=== PATIENT | female | born 1945 | race Caucasian/White ===

== ENCOUNTER 2017-01-07 05:03 | Inpatient (IN) | payer BC, OTHER ==
[2016-12-11 13:53] VITALS: BMI 44.0
--- NOTE | 2016-12-11 14:32 | PAT Medication Instructions ---
Service Date Dec 11, 2016. Current Home Medication List Aspirin (Aspirin Ec), 81 MG PO QAM Calcium Carbonate-Vitamin D (Oscal 500/200 D-3), 1 TAB PO TID Calcium W/ Vitamins D & K (Calcium + D), 1 TAB PO QAM Glimepiride (Glimepiride), 1 TAB PO QAM Levothyroxine Sodium (Levothyroxine Sodium), 1 TAB PO QAM Rosuvastatin Calcium (Crestor), 20 MG PO HS Vitamin E (Vitamin E), 400 UNITS PO QAM Medication Instructions For Your Scheduled Surgery - Hold the following medications 2 weeks prior to surgery: Vitamin E (Vitamin E), 400 UNITS PO QAM - Hold the following medications the morning of surgery: Glimepiride (Glimepiride), 1 TAB PO QAM Calcium Carbonate-Vitamin D (Oscal 500/200 D-3), 1 TAB PO TID Calcium W/ Vitamins D & K (Calcium + D), 1 TAB PO QAM - Take the following medications the morning of surgery with a sip of water: Levothyroxine Sodium (Levothyroxine Sodium), 1 TAB PO QAM Aspirin (Aspirin Ec), 81 MG PO QAM (unless - Take the following medications as scheduled the night before surgery: Rosuvastatin Calcium (Crestor), 20 MG PO HS Calcium Carbonate-Vitamin D (Oscal 500/200 D-3), 1 TAB PO TID If you have any questions please call us at [phone] (Raisa Laurent PA-C) or [phone] or [phone]
--- NOTE | 2016-12-11 15:00 | DIAGNOSTIC IMAGING REPORT ---
TWO VIEW CHEST CLINICAL HISTORY: Preoperative examination. FINDINGS: PA and lateral chest radiographs are obtained. No prior studies are available for comparison at the time of dictation. The cardiomediastinal silhouette is unremarkable. There is atherosclerotic calcification of the thoracic aorta. Airspace opacities at the right lung base likely represent atelectasis. The lungs and pleural spaces are otherwise clear. Nonspecific interstitial thickening is noted. There is mild elevation of right hemidiaphragm. There is no pneumothorax. The skeletal structures are osteopenic. Degenerative change is noted throughout the thoracic spine. IMPRESSION: No active disease in the chest. Electronically signed by: Mukund Myrick M.D. 12/11/2016 2:58 PM Dictated Date/Time: 12/11/2016 2:57 PM
[2016-12-11 15:19] LABS: BASO % 0.3 %; BASO ABS # 0.02 K/uL (0-0.2); COMPLETE YES; EOS % 2.1 %; HEMATOCRIT 42.1 % (37-47); LYMPH % 22.3 %; LYMPH ABS # 1.29 K/uL (1.2-3.4); MEAN CORPUSCULAR HEMOGLOBIN 28.7 pg (25-34); MEAN PLATELET VOLUME 10.6 fL (7.4-10.4); MONO % 6.7 %; NEUT % 68.6 %; PLATELET COUNT 250 K/uL (130-400); RED BLOOD COUNT 4.84 M/uL (4.2-5.4); WHITE BLOOD COUNT 5.79 K/uL (4.8-10.8)
[2016-12-11 15:39] LABS: BUN/CREATININE RATIO 15.3 (10-20); CALCIUM 8.6 mg/dl (8.5-10.1); CREATININE 1.1 mg/dl (0.60-1.20); POTASSIUM 4.2 mmol/L (3.5-5.1)
[2016-12-11 18:48] LABS: ESTIMATED AVERAGE GLUCOSE 131 mg/dl; HA1C FLAG Normal (Normal)
--- NOTE | 2017-01-01 12:57 | HISTORY & PHYSICAL EXAMINATION ---
DATE OF ADMISSION: 01/07/2017 HISTORY OF PRESENT ILLNESS: This is a 71-year-old female with a multiple-year history of pain in her right hip. The patient rates her pain a 10/10. She has pain with her daily activities. She has limited standing and walking tolerance. Pain is worse with weightbearing. The patient has had anti-inflammatories without relief. She has failed conservative treatment and is scheduled for right hip replacement. PAST MEDICAL HISTORY: Thyroid disease, diabetes. She denies heart disease or DVT. PAST SURGICAL HISTORY: Negative. SOCIAL HISTORY: The patient denies alcohol or tobacco use. She lives in a single raphael home. She lives with her daughter and is retired. FAMILY HISTORY: Negative for DVT. MEDICATIONS: Rosuvastatin 20 mg, aspirin 81 mg, L-thyroxine 75 mcg, Os-Dany 500 mg, vitamin E 400 mg, Viactiv and glimepiride. ALLERGIES: None. REVIEW OF SYSTEMS: See HPI. Ten other systems reviewed, all negative. PHYSICAL EXAMINATION: VITAL SIGNS: Height 5 feet 7 inches, weight 286 pounds. BMI is 45. GENERAL: This is a well-developed, well-nourished female who is alert and oriented x3. Mood and affect are appropriate. HEENT: Normocephalic, atraumatic. Mucous membranes are moist and intact. NECK: Supple without lymphadenopathy. HEART: Regular rate and rhythm without murmurs, rubs or gallops. LUNGS: Clear to auscultation without wheezes or rhonchi. ABDOMEN: Soft and nontender. Bowel sounds are equal and active. EXTREMITIES: No ecchymosis, redness or warmth. Logroll of the hip reproduces pain in the groin. She is neurovascularly intact with +5/5 strength. She has an antalgic gait. X-RAY EXAMINATION: AP and lateral views show severe joint space narrowing and osteophyte formation. IMPRESSION: 1. Degenerative joint disease, right hip. 2. Morbid obesity. PLAN: The patient will be admitted for a right total hip arthroplasty. We will plan lateral position. She will have [facility] for home physical therapy. We will plan on aspirin for DVT prophylaxis.
[~2017-01-07] VITALS: Ht 170.2 cm; Wt 129.3 kg
[2017-01-07] VITALS (13 sets, daily range): BP systolic 125–156; BP diastolic 69–89; PULSE 79–94; TEMP 34.6–36.7; O2SAT 93–100; Ht 170.2 cm; Wt 129.3 kg
[~2017-01-07 05:03] MED LIST: ASPI81TA28 PO; CALC1CHW57 PO; CALC200T PO; GLIM1TAB2 PO; LEVO75TA5 PO; ROSU20TA PO; VITA1TAB4 PO
[2017-01-07] MEDS ORDERED: OXYCODONE HCL 10 MG TABCR (OXYCONTIN) PO SCH (06:00)
[2017-01-07] MEDS ORDERED: LACTATED RINGER'S 1000ML IV SCH ×2 (06:00)
[2017-01-07] MEDS ORDERED: POLYMYXIN B SULFATE 100,000 UNITS in NSS 100ML IR SCH (06:00)
[2017-01-07] MEDS ORDERED: GABAPENTIN 300 MG CAP PO SCH (06:00)
[2017-01-07] MEDS ORDERED: LACTATED RINGER'S 500 ML IV SCH (06:00)
[2017-01-07] MEDS ORDERED: ACETAMINOPHEN 500 MG TAB PO SCH (06:00)
[2017-01-07] MEDS ORDERED: METOCLOPRAMIDE HCL 10 MG TAB PO SCH (06:00)
[2017-01-07] MEDS ORDERED: FAMOTIDINE 20 MG TAB PO SCH (06:00)
[2017-01-07] MEDS ORDERED: CEFAZOLIN 3000 MG/65 ML D5W 65 ML IV SCH (06:00)
[2017-01-07] MEDS ORDERED: ROPIVACAINE 5MG/ML 30 ML 150 MG, BUPIVACAINE/EPINEPHR 0.5% MPF 30 ML, KETOROLAC TROMETH... INFIL SCH ×7 (06:00)
[2017-01-07] MEDS ORDERED: CeleBREX 200 MG CAP PO SCH (06:00)
[2017-01-07] MEDS ORDERED: VANCOMYCIN INJ 400 MG in NSS 100ML IR SCH (06:00)
[2017-01-07] MEDS: TRANEXAMIC ACID INJ 1,000 MG in SODIUM CHLORIDE 0.9% 100ML 100 ML IV SCH ×2 (06:10→06:30)
[2017-01-07] MEDS ORDERED: BUPIVACAINE 0.5 % 5 MG/1 ML PF 10ML VIAL ONE (06:25)
[2017-01-07] MEDS ORDERED: MIDAZOLAM HCL 1 MG/ML 2ML VIAL ONE ×2 (06:44)
[2017-01-07] MEDS ORDERED: FENTANYL CITRATE INJ 50 MCG/1 ML 2 ML VIAL ONE (06:44)
[2017-01-07] MEDS ORDERED: ORTHO JOINT ANESTHETIC ONE (06:50)
[2017-01-07] MEDS ORDERED: POVIDONE-IODINE OP SOLN 30 ML BTL ONE (06:50)
--- NOTE | 2017-01-07 07:05 | History & Physical Bridge Note ---
H&P Re-Evaluation Bridge Note: I have examined the patient, reviewed the History & Physical and in the interval since the performance of the History & Physical I have noted the following changes of clinical significance: No changes noted
[2017-01-07] MEDS ORDERED: ATROPINE SULFATE 0.1 MG/ML 5ML SYR IV PRN (07:30)
[2017-01-07] MEDS ORDERED: ONDANSETRON INJ 2 MG/ML 2 ML VIAL IV PRN ×2 (07:30→09:00)
[2017-01-07] MEDS ORDERED: EpHEDrine SULFATE INJ 50 MG/ML AMP IV PRN (07:30)
[2017-01-07] MEDS ORDERED: FENTANYL CITRATE INJ 50 MCG/1 ML 2 ML VIAL IV PRN (07:30)
[2017-01-07] MEDS ORDERED: EpHEDrine SULFATE 50MG/5ML SYR ONE (07:52)
[2017-01-07] MEDS ORDERED: PROPOFOL IV EMULSION 10 MG/ML 20 ML VIAL IV ONE (07:52)
[2017-01-07] MEDS ORDERED: PHENYLEPHRINE 100MCG/ML 5ML SYR ONE (07:52)
[2017-01-07] MEDS ORDERED: POVIDONE-IODINE OP SOLN 30 ML BTL TOP ONE (08:17)
[2017-01-07] MEDS ORDERED: BACITRACIN 50000 UNIT VIAL IR ONE (08:17)
--- NOTE | 2017-01-07 08:57 | [facility] Post Operative Brief Note ---
Immediate Operative Summary Operative Date Jan 07, 2017. Pre-Operative Diagnosis Right hip degenerative joint disease Post-Operative Diagnosis Right hip degenerative joint disease morbid obesity bmi 45 Procedure(s) Performed Right total hip arthroplasty- uncemented Surgeon Dr. Valentín Cruz Manager Storage Surgeon(s) Socorro Rey PA-C Estimated Blood Loss 50 ML Findings djd Specimens A. Right Femur Head Complication(s) None Disposition Recovery Room / PACU
[2017-01-07] MEDS ORDERED: ZOLPIDEM TARTRATE 5 MG TAB PO PRN (09:00)
[2017-01-07] MEDS ORDERED: BISACODYL 10 MG SUPP PR PRN (09:00)
[2017-01-07] MEDS ORDERED: MoRPHine SULFATE 2 MG/ML CARP IV PRN (09:00)
[2017-01-07] MEDS ORDERED: METOCLOPRAMIDE HCL INJ 5 MG/ML 2 ML VIAL IV PRN (09:00)
[2017-01-07] MEDS ORDERED: MAGNESIUM HYDROXIDE SUSP 30 ML UDC PO PRN (09:00)
[2017-01-07] MEDS ORDERED: SOD PHOSPHATE/SOD BIPHOSPHATE ENEMA 132 ML BTL PR PRN (09:00)
[2017-01-07] MEDS ORDERED: DiphenhydrAMINE HCL 50 MG/ML VIAL IV PRN (09:00)
[2017-01-07] MEDS ORDERED: ALUMINUM/MAGNESIUM/SIMETH (MAALOX MAX) 30 ML UDC PO PRN (09:00)
[2017-01-07] MEDS ORDERED: TRAMADOL HCL 50 MG TAB PO PRN (09:00)
--- NOTE | 2017-01-07 10:01 | DIAGNOSTIC IMAGING REPORT ---
INTRAOPERATIVE FLUOROSCOPIC IMAGE OF THE RIGHT HIP CLINICAL HISTORY: Right hip arthroplasty. COMPARISON STUDY: No previous studies for comparison. Fluoroscopy time: 16.2 seconds. FINDINGS: A single AP fluoroscopic image demonstrates anatomic alignment of the right hip arthroplasty. There is an acetabular screw. No fracture or unexpected radiopaque foreign body is identified. IMPRESSION: Expected intraoperative findings during right hip arthroplasty. Electronically signed by: Prabhjot Patetrson M.D. 01/07/2017 10:00 AM Dictated Date/Time: 01/07/2017 9:59 AM
--- NOTE | 2017-01-07 10:02 | DIAGNOSTIC IMAGING REPORT ---
RIGHT PELVIS/UNILATERAL HIP 1 VIEW CLINICAL HISTORY: Right hip degenerative arthritis. Arthroplasty. COMPARISON: Intraoperative fluoroscopic image performed earlier today. FINDINGS: Alignment of the total right hip arthroplasty is anatomic. There is an acetabular screw and surgical drain. There is no fracture or unexpected radiopaque foreign body. IMPRESSION: Expected findings following total right hip arthroplasty. Electronically signed by: Prabhjot Patterson M.D. 01/07/2017 10:01 AM Dictated Date/Time: 01/07/2017 10:00 AM
[2017-01-07] MEDS ORDERED: PHARMACY GLYCEMIC MGMT CONSULT SCH (10:11)
--- NOTE | 2017-01-07 10:16 | Anesthesiology Progress Note ---
Anesthesia Post Op Note Date & Time Jan 07, 2017 at 10:17 Vital Signs Pain Intensity: 0 Vital Signs Past 12 Hours Date Time Temp Pulse Resp B/P Pulse Ox O2 Delivery O2 Flow Rate FiO2 01/07/17 10:03 130/69 01/07/17 10:01 74 16 01/07/17 10:01 72 16 100 01/07/17 09:58 109/86 01/07/17 09:56 73 12 100 01/07/17 09:56 72 12 01/07/17 09:53 144/77 01/07/17 09:51 77 12 01/07/17 09:51 75 12 100 01/07/17 09:48 120/71 01/07/17 09:46 82 16 01/07/17 09:46 83 16 100 01/07/17 09:43 114/86 01/07/17 09:41 80 19 01/07/17 09:41 81 19 100 01/07/17 09:38 105/60 01/07/17 09:36 79 11 01/07/17 09:36 81 11 98 01/07/17 09:33 123/79 01/07/17 09:31 81 17 100 01/07/17 09:31 80 17 01/07/17 09:28 128/60 01/07/17 09:27 120/65 01/07/17 09:26 79 19 72/53 100 01/07/17 09:26 36.9 83 12 120/65 95 Mask 10 01/07/17 09:26 79 19 01/07/17 05:38 36.6 85 18 128/89 96 Room Air Notes Mental Status: alert / awake / arousable, participated in evaluation Pt Amnestic to Procedure: Yes Nausea / Vomiting: adequately controlled Pain: adequately controlled Airway Patency, RR, SpO2: stable & adequate BP & HR: stable & adequate Hydration State: stable & adequate Neuraxial Anesthesia: was administered, sensory block is resolving Anesthetic Complications: no major complications apparent
[2017-01-07] MEDS ORDERED: GLUCAGON FOR INJ 1 MG VIAL SQ PRN (10:30)
[2017-01-07] MEDS ORDERED: DEXTROSE 50% 50 ML SYR IV PRN (10:30)
[2017-01-07] MEDS ORDERED: GLUCOSE 10 TABS/TUBE PO PRN (10:30)
[2017-01-07] MEDS ORDERED: GLUCOSE 40% GEL 15 GM TUBE PO PRN (10:30)
--- NOTE | 2017-01-07 10:37 | Pharmacy Progress Note ---
Glycemic Control Intl Consult Date of Service Jan 07, 2017. Scope Glycemic Pharmacist consulted by Dr Cruz on 01/07/17 for glycemic control and to write orders per [facility] inpatient glycemic control protocol Objective Weight (Kilograms): 129.30 Accuchecks BSG (last 24hrs): Test 01/07/17 06:05 01/07/17 10:12 Bedside Glucose 128 mg/dl (70-90) 127 mg/dl (70-90) Recent Pertinent Medications Outpatient Anti-diabetic Regimen: * glimepiride 1mg PO daily * A1c = 6.2 % 12/11/16 The patient is currently receiving: * Basal insulin: none at this time * Correctional Insulin: none at this time * Oral Agents: glimepiride 1mg PO daily Risk Factors for Insulin Resistance: * Infection: cefazolin perioperatively * IVF: LR prior to surgery, NSS postoperatively * Recent Surgery: POD #0 right hip arthroplasty * Diet: NPO prior to surgery --> T2DM postoperatively Assessment & Plan ASSESSMENT: 01/07/17 * 71 year old type 2 diabetic who is here for a right hip arthroplasty today. BSG on admission WNL at 128mg/dL * Recent A1c indicates appropriate control of T2DM with monotherapy glimepiride. * Currently, a diet is ordered, however sulfonylureas are typically held while admitted secondary to their hypoglycemic risk. * Hold oral glimepiride at this time * For BSG control, implement NovoLog sliding scale * correction factor only as patient did not receive steroids intraoperatively and BSGs are currently WNL - weight-based dosing * Goal range based on home average glucose level of 131mg/dL (100-140mg/dL) * A1c is current PLAN FOR INPATIENT GLYCEMIC CONTROL: * Basal insulin * hold at this time * Correctional insulin * NovoLog AC and HS * Correction factor: 30mg/dL/unit * Goal range: 100-140mg/dL * A1c - current * added to discharge instructions * Please note that the plan above was derived based on current level of insulin resistance and hospital stress. These recommendations are appropriate for inpatient admission only. Plan of care upon discharge will need to be reassessed to avoid potential outpatient hypo/hyperglycemia. Thank you.
[2017-01-07] MEDS: INSULIN ASPART 100 UNITS/ML 3 ML PEN SC SCH ×4 (11:00→20:40)
[2017-01-07] MEDS: SODIUM CHLORIDE 0.9% 1000ML 1,000 ML IV SCH ×2 (11:53→21:40)
[2017-01-07] MEDS: KETOROLAC TROMETHAMINE 15 MG/ML VIAL IV. SCH ×2 (12:12→17:58)
[2017-01-07] MEDS: ACETAMINOPHEN 500 MG TAB PO SCH ×2 (13:42→21:40)
[2017-01-07] MEDS: CEFAZOLIN IV 2,000 MG in DEXTROSE 5% 50ML 50 ML IV SCH (16:22)
--- NOTE | 2017-01-07 18:40 | OPERATIVE REPORT ---
DATE OF OPERATION: 01/07/2017 PREOPERATIVE DIAGNOSIS: 1. Degenerative arthritis, right hip, severe. 2. Morbid obesity, BMI of 45. POSTOPERATIVE DIAGNOSIS: Same. PROCEDURE: Right total hip replacement. SURGEON: Haresh Cruz MD DIRECTOR OF ANNUAL GIVING: Socorro Rey PA-C ANESTHESIA: Spinal. BLOOD LOSS: 50 mL. REPLACEMENT FLUIDS: 1600 mL crystalloid. DRAINS: Hemovacs x1. CULTURES: None. COMPLICATIONS: None. COMPONENTS USED: [employer] Hip System: Acetabulum size 54, femur size 6 standard offset, femoral head -3, 36 mm. NOTE: Socorro Rey PA-C was present and assisted throughout due to the complicated nature of this case. She helped with preparation and set up, first assisted throughout and closed the fascial, subcutaneous and skin layers and applied the postoperative dressing. DESCRIPTION: Following satisfactory spinal, the patient was supine. The right hip was placed in the traction device and the left hip in the well leg meyers. The hip was prepared with ChloraPrep and draped sterilely. Following a surgical time-out, an anterior approach in the interval between the sartorius and tensor muscles was completed. The approach was difficult because of the patient's morbidly obese body habitus. Dissection through a very large subcutaneous fat layer added additional time and difficulty to the procedure. Eventually the fascia was divided. The circumflex femoral vessels were identified and ligated. An anterior capsulotomy was performed exposing a severely arthritic femoral neck and head. The femoral head was trimmed and removed. The acetabular self-retraining retractor was placed, acetabular preparation was completed with reaming and under fluoroscopic guidance, a 54 shell was impacted into an anatomic position and secured with a dome screw. Local anesthetic was placed and after irrigation, the polyethylene liner was placed. The femur was then placed into position of external rotation, extension and adduction. Her obese, short leg did make exposure of the proximal canal difficult. The canal was eventually sounded and prepared up to a size 6. Intraoperative fluoroscopy with reduction showed good fit and fill of the proximal canal and uatsdin of leg lengths using anatomic landmarks on fluoroscopy. The hip was dislocated. The trial component was removed. The final implant was placed and after irrigation, the hip was reduced with x-rays confirming similar position. A Betadine soak was performed. After 5 minutes, the Betadine was irrigated. Local anesthetic had been placed. The capsule was closed with 1-0 Vicryl interrupted. A drain was placed. The fascia was then closed with a running suture of 0 Vicryl. The subcutaneous tissues were closed in multiple layers with 1 Vicryl deep, 2-0 Vicryl superficial, and a running subcuticular stitch of 3-0 V-Loc in the skin. Dermabond and a dry dressing were applied. The patient was returned to her bed in stable condition. I attest to the content of the Intraoperative Record and any orders documented therein. Any exceptio ns are noted below.
[2017-01-07] MEDS: ROSUVASTATIN CALCIUM 20 MG TAB PO SCH (20:31)
[2017-01-07] MEDS: SENNA 8.6 MG TAB PO SCH (20:31)
[2017-01-07] MEDS: ASPIRIN 81 MG ECTAB PO SCH (20:31)
[2017-01-08] MEDS: CEFAZOLIN IV 2,000 MG in DEXTROSE 5% 50ML 50 ML IV SCH (00:17)
[2017-01-08] MEDS: KETOROLAC TROMETHAMINE 15 MG/ML VIAL IV. SCH ×5 (00:18→23:27)
[2017-01-08 03:37] VITALS: BP 129/79; PULSE 76; TEMP 36.6; O2SAT 95
[2017-01-08] MEDS: LEVOTHYROXINE 75 MCG TAB PO SCH (05:53)
[2017-01-08] MEDS: ACETAMINOPHEN 500 MG TAB PO SCH ×3 (05:54→21:34)
[2017-01-08 07:35] VITALS: BP 133/80; PULSE 69; TEMP 36.7; O2SAT 97
[2017-01-08] MEDS: SODIUM CHLORIDE 0.9% 1000ML 1,000 ML IV SCH (07:44)
[2017-01-08] MEDS: OXYCODONE HCL IR 5 MG TAB (IMMEDIATE RELEASE) PO PRN ×2 (07:45→15:25)
--- NOTE | 2017-01-08 07:58 | Orthopedic Progress Note ---
Orthopedic Progress Note Date of Service Jan 08, 2017. Subjective Post OP Day: 1 Reports: feeling well, Denies: SOB, calf pain, chest pain, light headedness, nausea / vomiting Objective calves soft nontender, N/V intact, hip located, dressing C/D/I, A&O x3, toes mobile, hemovac drainage (185/130cc per shift) Date Time Temp Pulse Resp B/P Pulse Ox O2 Delivery O2 Flow Rate FiO2 01/08/17 07:35 36.7 69 20 133/80 97 Room Air 01/08/17 03:37 36.6 76 20 129/79 95 Room Air 01/08/17 00:00 Room Air 01/07/17 22:50 36.6 81 18 150/74 96 Room Air 01/07/17 19:25 36.7 84 18 152/71 93 Room Air 01/07/17 16:11 98 Nasal Cannula 2.0 01/07/17 15:35 96 Room Air 01/07/17 15:07 36.6 92 16 130/69 98 Nasal Cannula 2.0 01/07/17 14:19 36.5 94 16 138/ 98 Nasal Cannula 2.0 01/07/17 13:50 36.5 94 16 138/82 98 Nasal Cannula 2.0 01/07/17 12:50 36.5 87 15 130/77 99 Nasal Cannula 2.0 01/07/17 12:23 99 Nasal Cannula 2.0 01/07/17 12:04 36.4 86 17 125/74 99 Nasal Cannula 2.0 01/07/17 11:35 34.6 79 16 130/79 98 Nasal Cannula 2.0 01/07/17 10:50 Nasal Cannula 2.0 01/07/17 10:50 36.4 81 16 156/85 100 Nasal Cannula 2.0 01/07/17 10:50 Nasal Cannula 2.0 01/07/17 10:34 90 18 01/07/17 10:34 89 18 100 01/07/17 10:33 115/78 01/07/17 10:29 77 9 01/07/17 10:29 77 9 99 01/07/17 10:28 125/66 01/07/17 10:24 78 14 99 01/07/17 10:24 77 14 01/07/17 10:23 146/75 01/07/17 10:19 80 19 01/07/17 10:19 79 19 99 01/07/17 10:18 130/84 01/07/17 10:16 37.0 80 16 130/84 99 Nasal Cannula 2 01/07/17 10:14 79 12 01/07/17 10:14 80 12 100 01/07/17 10:13 136/66 01/07/17 10:09 77 18 01/07/17 10:09 77 18 100 01/07/17 10:08 109/74 01/07/17 10:04 72 11 01/07/17 10:04 71 11 100 01/07/17 10:03 130/69 01/07/17 10:01 74 16 01/07/17 10:01 72 16 100 01/07/17 09:58 109/86 01/07/17 09:56 73 12 100 01/07/17 09:56 72 12 01/07/17 09:53 144/77 01/07/17 09:51 77 12 01/07/17 09:51 75 12 100 01/07/17 09:48 120/71 01/07/17 09:46 82 16 01/07/17 09:46 83 16 100 01/07/17 09:43 114/86 01/07/17 09:41 80 19 01/07/17 09:41 81 19 100 01/07/17 09:38 105/60 01/07/17 09:36 79 11 01/07/17 09:36 81 11 98 01/07/17 09:33 123/79 01/07/17 09:31 81 17 100 01/07/17 09:31 80 17 01/07/17 09:28 128/60 01/07/17 09:27 120/65 01/07/17 09:26 79 19 72/53 100 01/07/17 09:26 36.9 83 12 120/65 95 Mask 10 01/07/17 09:26 79 19 Laboratory Results 24 Hours: Test 01/08/17 04:44 Assessment & Plan Assessment: POD#1 sp right CAROLYN, direct anterior Morbid obesity Inhouse Planning Pain Management: Celebrex, PO Tylenol, Oxy IR DVT Prophylaxis: TEDs, SCDs, ASA Discharge Planning Discharge Planning: home with home health ([facility] HOME [facility] TOMORROW)
[2017-01-08] MEDS ORDERED: GLIMEPIRIDE 2 MG TAB PO SCH (08:00)
--- NOTE | 2017-01-08 08:12 | Discharge Instructions ---
Discharge Instructions Admission Reason for Admission: Right Hip Degenerative Arthritis Discharge Discharge Diagnosis / Problem: SP RIGHT CAROLYN Discharge Goals Goal(s): Decrease discomfort, Improve function, Increase independence Activity Recommendations Activity Limitations: per Instructions/Follow-up section . Instructions / Follow-Up Instructions / Follow-Up ACTIVITY RECOMMENDATIONS: SELF CARE INSTRUCTIONS AFTER TOTAL HIP REPLACEMENT : Direct Anterior Approach Until the incision and soft tissues around your hip have healed, there is a possibility that the hip prosthesis could dislocate. A. Hip flexion ( Up & Down out of chair or steps ) may be difficult. This is normal. B. Numbness in front of the thigh is also normal for a few weeks. C. Use hand rails when walking on stairs. D. Wear low heeled shoes with non-slip soles. E. Be sure that your floors are free of things that could trip you - throw rugs , electrical cords, small objects. Avoid wet and waxed floors, especially with crutches and canes. F. Try to walk several times a day with rest periods between. G. Continue with all the exercises taught to you in the hospital. Again, make walking a part of your daily routine. SPECIAL CARE INSTRUCTIONS: VERY IMPORTANT TO READ AND REVIEW A. You may still be at risk for phlebitis and blood clots. 1. Wear surgical stockings (DHIRAJ hose) for 2 weeks after surgery to improve circulation and reduce swelling. 2. Take Aspirin 81mg twice daily for 4 weeks or as directed by your doctor. This is your blood thinner. 3. High risk patients may be prescribed a stronger blood thinner if necessary. 4. If you are on Coumadin normally, your family doctor/supervisor money room should monitor your blood work. Expect a phone call the day of or the day after bloodwork is drawn to adjust your dosage. B. You must take antibiotics before having dental work, bladder, bowel and other surgery. Your doctor will provide you with a permanent card to carry describing precautions. C. Call [facility] if you have a fever, redness or swelling around the incision, cloudy drainage from incision, or sudden increase in pain in your hip, not relieved by your regular pain medication. D. Please call the office at if you have any concerns or questions about your operation or recovery. * YOU MAY SHOWER, NO TUB BATHS UNTIL CLEARED BY YOUR DOCTOR. - Keep an extra close eye on the top portion of your incision. Be sure to keep clean & dry. * WEAR DHIRAJ HOSE 20 HOURS PER DAY FOR 2 WEEKS. * YOU MAY PROGRESS FROM A WALKER, TO A CANE, TO INDEPENDENT AT YOUR OWN PACE. * MOST PATIENTS WILL HAVE HOME NURSING FOR THERAPY. IF YOU DECIDE TO DO OUTPATIENT PHYSICAL THERAPY, PLEASE SCHEDULE THIS 3 TIMES PER WEEK. * DERMABOND Prineo- This is a mesh tape dressing that is covered with glue. It should remain in place until the incision is properly healed, usually 10-14 days. This dressing is designed to naturally slough off. You may trim the excess mesh tape as it peels off. Incision may be briefly wet in a shower. Dry immediately by blotting with a clean, dry towel. Do not bath or swim until instructed by your doctor. Do not scratch, rub, or pick at the dressing. Do not apply any topical ointments or lotions until dressing is completely removed and/or instructed by your doctor. There may be a small piece of suture material at one end of your incision. Do not pull or trim this. If it is bothersome or catching on clothing, you may cover it with a band-aid. FOLLOW UP VISIT: If appointment is not already scheduled: Please call [facility] to make a follow-up appointment for 2 weeks after your surgery at . Current Hospital Diet Patient's current hospital diet: Diabetes Type 2 Diet Discharge Diet Recommended Diet: Regular Diet Procedures Procedures Performed: Right total hip arthroplasty- uncemented Pending Studies Studies pending at discharge: no Laboratory Results Hemoglobin A1c Test 12/11/16 14:37 Range/Units Estimated Average Glucose 131 mg/dl Hemoglobin A1c 6.2 H 4.5-5.6 % Medical Emergencies . Who to Call and When: Medical Emergencies: If at any time you feel your situation is an emergency, please call 911 immediately. . Non-Emergent Contact Non-Emergency issues call your: Primary Care Provider . "Provider Documentation" section prepared by Socorro Rey. VTE Core Measure Inpt VTE Proph given/why not?: Other Anticoagulation, T.E.D. Stockings, SCD's
[2017-01-08 08:20] LABS: BASO % 0.2 %; BASO ABS # 0.01 K/uL (0-0.2); COMPLETE YES; EOS % 0.4 %; HEMATOCRIT 36.1 % (37-47); IG% 0.2 %; LYMPH % 12.6 %; LYMPH ABS # 0.71 K/uL (1.2-3.4); MEAN CELL VOLUME 86.8 fL (80-100); MEAN CORPUSCULAR HEMOGLOBIN 28.4 pg (25-34); MEAN CORPUSCULAR HGB CONC 32.7 g/dl (32-36); MEAN PLATELET VOLUME 10.3 fL (7.4-10.4); MONO % 7.3 %; NEUT % 79.3 %; PLATELET COUNT 172 K/uL (130-400); RED BLOOD COUNT 4.16 M/uL (4.2-5.4); WHITE BLOOD COUNT 5.64 K/uL (4.8-10.8)
[2017-01-08 08:46] LABS: BUN/CREATININE RATIO 14.7 (10-20); CALCIUM 8.2 mg/dl (8.5-10.1); CREATININE 0.93 mg/dl (0.60-1.20)
[2017-01-08] MEDS: PANTOprazole SOD 40 MG TAB PO SCH (09:15)
[2017-01-08] MEDS: ASPIRIN 81 MG ECTAB PO SCH ×2 (09:16→21:33)
[2017-01-08] MEDS: MULTIVITAMIN TAB PO SCH (09:16)
[2017-01-08] MEDS: INSULIN ASPART 100 UNITS/ML 3 ML PEN SC SCH ×4 (09:19→21:35)
[2017-01-08 09:45] VITALS: BP 104/67; PULSE 72; O2SAT 97
--- NOTE | 2017-01-08 11:04 | Pharmacy Progress Note ---
Glycemic Control: Progress Nt Date of Service Jan 08, 2017. Scope Glycemic Pharmacist consulted by Dr Cruz on 01/07/17 for glycemic control and to write orders per [facility] inpatient glycemic control protocol. Objective Accuchecks BSG (last 24hrs): Test 01/07/17 12:27 01/07/17 16:47 01/07/17 20:35 01/08/17 08:05 Bedside Glucose 164 mg/dl (70-90) 245 mg/dl (70-90) 254 mg/dl (70-90) Random Glucose 155 mg/dl (70-99) Test 01/08/17 08:22 Bedside Glucose 146 mg/dl (70-90) Laboratory Data (last 24hrs) Test 01/08/17 08:05 Anion Gap 10.0 mmol/L BUN/Creatinine Ratio 14.7 Blood Urea Nitrogen 14 mg/dl Creatinine 0.93 mg/dl Potassium Level 4.0 mmol/L Sodium Level 144 mmol/L White Blood Count 5.64 K/uL Red Blood Count 4.16 M/uL Hemoglobin 11.8 g/dL Hematocrit 36.1 % Mean Corpuscular Volume 86.8 fL Mean Corpuscular Hemoglobin 28.4 pg Mean Corpuscular Hemoglobin Concent 32.7 g/dl Platelet Count 172 K/uL Mean Platelet Volume 10.3 fL Neutrophils (%) (Auto) 79.3 % Lymphocytes (%) (Auto) 12.6 % Monocytes (%) (Auto) 7.3 % Eosinophils (%) (Auto) 0.4 % Basophils (%) (Auto) 0.2 % Neutrophils # (Auto) 4.48 K/uL Lymphocytes # (Auto) 0.71 K/uL Monocytes # (Auto) 0.41 K/uL Eosinophils # (Auto) 0.02 K/uL Basophils # (Auto) 0.01 K/uL Recent Pertinent Medications Outpatient Anti-diabetic Regimen: * glimepiride 1mg PO daily * A1c = 6.2 % 12/11/16 The patient is currently receiving: * Basal insulin: none at this time * Correctional Insulin: * NovoLog AC and HS * Correction factor 30mg/dL/unit * Oral Agents: on hold at this time Risk Factors for Insulin Resistance: * IVF: NSS * Recent Surgery: POD #1 right hip arthroplasty * Diet: T2DM Assessment & Plan ASSESSMENT: 01/07/17 * 71 year old type 2 diabetic who is here for a right hip arthroplasty today. BSG on admission WNL at 128mg/dL * Recent A1c indicates appropriate control of T2DM with monotherapy glimepiride. * Currently, a diet is ordered, however sulfonylureas are typically held while admitted secondary to their hypoglycemic risk. * Hold oral glimepiride at this time * For BSG control, implement NovoLog sliding scale * correction factor only as patient did not receive steroids intraoperatively and BSGs are currently WNL - weight-based dosing * Goal range based on home average glucose level of 131mg/dL (100-140mg/dL) * A1c is current 01/08/17 * BSGs ward precipitously postoperatively despite correctional insulin. * No steroids given per anesthesia record * add carb ratio to help combat hyperglycemia postprandially * Fasting BSG near goal at this time * forgo basal insulin PLAN FOR INPATIENT GLYCEMIC CONTROL: * Basal insulin * none at this time * Correctional insulin * NovoLog AC and HS * Correction factor: 30mg/dL/unit * Carb ratio: 1 unit per 10 g of CHO consumed * Goal range: 100-140mg/dL * Oral agents: * hold at this time * A1c - current * added to discharge instructions * Please note that the plan above was derived based on current level of insulin resistance and hospital stress. These recommendations are appropriate for inpatient admission only. Plan of care upon discharge will need to be reassessed to avoid potential outpatient hypo/hyperglycemia. Thank you.
[2017-01-08 11:31] VITALS: BP 119/65; PULSE 69; TEMP 36.5; O2SAT 96
[2017-01-08 15:06] VITALS: BP 122/67; PULSE 74; TEMP 36.7; O2SAT 97
[2017-01-08] MEDS: SENNA 8.6 MG TAB PO SCH (21:33)
[2017-01-08] MEDS: ROSUVASTATIN CALCIUM 20 MG TAB PO SCH (21:33)
[2017-01-08 23:12] VITALS: BP 127/77; PULSE 77; TEMP 36.8; O2SAT 95
[2017-01-09] MEDS: LEVOTHYROXINE 75 MCG TAB PO SCH (05:55)
[2017-01-09] MEDS: ACETAMINOPHEN 500 MG TAB PO SCH (05:56)
[2017-01-09] MEDS: KETOROLAC TROMETHAMINE 15 MG/ML VIAL IV. SCH (05:57)
--- NOTE | 2017-01-09 07:53 | DISCHARGE SUMMARY ---
DISCHARGE DIAGNOSIS: Degenerative joint disease, right hip. SECONDARY DIAGNOSIS: Morbid obesity. CONSULTS: None. COMPLICATIONS: None. PROCEDURE: The patient underwent a direct anterior right total hip arthroplasty with Dr. Cruz on 01/07/2017. BRIEF HISTORY: Please see previously dictated history and physical. HOSPITAL SUMMARY: The patient was admitted on the above day for the above procedure. Procedure went without complication. Postop day 1, the patient was feeling well without complaints. She denied chest pain or shortness of breath. Vital signs were stable. She was afebrile. Dressing was clean, dry and intact. She was neurovascularly intact. Calves were soft and nontender. Hip was located. Hemovac drained 185 and 130 mL per shift. Hemoglobin was 11.8. The patient began physical therapy per protocol. Postop day 2, the patient continued to improve. Vital signs were stable. She was afebrile. Incision was clean, dry and intact. She was neurovascularly intact. Hip was located. Patient continued to progress with physical therapy and was discharged to home later that day in stable condition. For further review please see the chart. Lab, x-ray data and discharge instructions as per chart.
[2017-01-09 07:55] VITALS: BP 115/81; TEMP 36.4; O2SAT 96
[2017-01-09] MEDS: OXYCODONE HCL IR 5 MG TAB (IMMEDIATE RELEASE) PO PRN ×2 (08:13→12:22)
[2017-01-09] MEDS: ASPIRIN 81 MG ECTAB PO SCH (08:13)
[2017-01-09] MEDS: PANTOprazole SOD 40 MG TAB PO SCH (08:14)
[2017-01-09] MEDS: MULTIVITAMIN TAB PO SCH (08:14)
[2017-01-09] MEDS ORDERED: ASPI81TA28 PO (08:16)
[2017-01-09] MEDS ORDERED: SNK PO (08:16)
[2017-01-09] MEDS ORDERED: RXC5 PO (08:16)
[2017-01-09] MEDS ORDERED: CLB200 PO (08:16)
[2017-01-09] MEDS ORDERED: ONDA8TAB6 PO (08:16)
[2017-01-09] MEDS ORDERED: ACET-1138 PO (08:16)
[2017-01-09] MEDS: INSULIN ASPART 100 UNITS/ML 3 ML PEN SC SCH ×2 (08:54→12:00)
[2017-01-09 08:57] VITALS: O2SAT 96
[2017-01-09 12:06] VITALS: BP 115/81; PULSE 77; TEMP 36.4; O2SAT 96
[2017-01-09] MEDS ORDERED: CeleBREX 200 MG CAP PO SCH (21:00)
== END 2017-01-09 13:45 | disposition home health service (06) | DRG 470 ==
LOC: ENRESERVDT → ENRESERVTM → C.ACU 05:03 → C.3E 06:30
PROVIDERS: ADMIT Orthopaedic Surgery; ATTEND Orthopaedic Surgery
PROC: 0SR904A Replacement of Right Hip Joint with Ceramic on Polyethylene Synthetic Substitute, Uncemented, Open Approach (ICD-10-PCS; principal; 2017-01-07 07:15)
DX: M16.11 Unilateral primary osteoarthritis, right hip (principal); Z68.42 Body mass index [BMI] 45.0-49.9, adult; E07.9 Disorder of thyroid, unspecified; E11.9 Type 2 diabetes mellitus without complications; E78.5 Hyperlipidemia, unspecified; E66.01 Morbid (severe) obesity due to excess calories; Z79.82 Long term (current) use of aspirin; Z79.84 Long term (current) use of oral hypoglycemic drugs; Z79.899 Other long term (current) drug therapy